=== PATIENT | male | born 1945 | race Caucasian/White ===

== ENCOUNTER → 2018-08-28 15:12 | Outpatient (CLI) | payer OTHER, SELFPAY ==
[2018-08-28 16:05] LABS: BUN Creatinine Ratio 22.5 (6-22); Blood Urea Nitrogen 18 mg/dL (9-20); Calcium 9.6 mg/dL (8.4-10.2); Carbon Dioxide 27 mmol/L (22-32); Chloride 106 mmol/L (98-107); Cholesterol 254 mg/dL (140-199); Estimated Glomerular Filt Rate > 60.0 mL/min (>60); Glucose 67 mg/dL (80-110); HDL Cholesterol 37 mg/dL (40-60); HEMOLYSIS < 15 (0-50); Potassium 4.6 mmol/L (3.4-5.1); Sodium 142 mmol/L (137-145); Triglycerides 517 mg/dL (35-150); Uric Acid 8.1 mg/dL (3.5-8.5)
[2018-08-28 16:21] LABS: Vitamin D 25 Hydroxy (D3) 13.7 ng/mL (30.0-100.0)
== END ==
PROVIDERS: PCP Student in an Organized Health Care Education/Training Program; Visit Provider Student in an Organized Health Care Education/Training Program
DX: M10.9 Gout, unspecified (principal); E78.00 Pure hypercholesterolemia, unspecified; E55.9 Vitamin D deficiency, unspecified; Z12.11 Encounter for screening for malignant neoplasm of colon
CPT/HCPCS: 36415; 80048; 80061; 82306; 84550

== ENCOUNTER → 2018-09-01 11:53 | Outpatient (CLI) | payer OTHER, SELFPAY ==
--- NOTE | 2018-09-01 11:53 | DI.US.S_ITS ---
PROCEDURE: US ABD AORTA ANEURYSM SCREEN INDICATIONS: AAA screen TECHNIQUE: Real time scanning was performed of the aorta and iliac arteries, with image documentation. COMPARISON: None. FINDINGS: Aorta: The upper two thirds of the aorta are obscured by bowel gas. The distal aorta measures 1.9 cm in maximal axial dimension. Iliac arteries: Right common iliac artery measures 1.2 cm. Left common iliac artery measures 1.2 cm. IMPRESSION: Nonvisualization of the upper two thirds of the aorta, due to bowel gas. The distal third of the aorta and iliac arteries show no evidence of aneurysm formation. During scanning incidental note was made of a 2.2 cm maximal dimension left renal cortical hypoechoic structure moderately well-visualized and likely a cyst. Dictated by: Don Ramirez M.D. on 09/01/2018 at 12:59 Approved by: Don Ramirez M.D. on 09/01/2018 at 13:02
== END ==
PROVIDERS: PCP Student in an Organized Health Care Education/Training Program; Visit Provider Student in an Organized Health Care Education/Training Program
DX: Z13.6 Encounter for screening for cardiovascular disorders (principal); Z87.891 Personal history of nicotine dependence
CPT/HCPCS: 76706

== ENCOUNTER → 2018-09-02 11:34 | Outpatient (CLI) | payer OTHER, SELFPAY ==
[2018-09-04 17:51] LABS: Fecal Immunochemical Test DETECTED (NOT DETECTED)
== END ==
PROVIDERS: PCP Student in an Organized Health Care Education/Training Program; Visit Provider Student in an Organized Health Care Education/Training Program
DX: Z12.11 Encounter for screening for malignant neoplasm of colon (principal)
CPT/HCPCS: 82274

== ENCOUNTER → 2018-11-27 10:15 | Outpatient (CLI) | payer OTHER, SELFPAY ==
[2018-11-27 12:05] LABS: BUN Creatinine Ratio 17.8 (6-22); Blood Urea Nitrogen 16 mg/dL (9-20); Calcium 9.3 mg/dL (8.4-10.2); Carbon Dioxide 29 mmol/L (22-32); Chloride 104 mmol/L (98-107); Cholesterol 199 mg/dL (140-199); Estimated Glomerular Filt Rate > 60.0 mL/min (>60); Glucose 115 mg/dL (80-110); HDL Cholesterol 37 mg/dL (40-60); HEMOLYSIS < 15 (0-50); Lipase 130 U/L (23-300); Potassium 4.3 mmol/L (3.4-5.1); Sodium 142 mmol/L (137-145); Triglycerides 433 mg/dL (35-150); Uric Acid 5.3 mg/dL (3.5-8.5)
== END ==
PROVIDERS: PCP Student in an Organized Health Care Education/Training Program; Visit Provider Student in an Organized Health Care Education/Training Program
DX: E55.9 Vitamin D deficiency, unspecified (principal); I10 Essential (primary) hypertension; M10.9 Gout, unspecified; E78.1 Pure hyperglyceridemia; E78.2 Mixed hyperlipidemia; Z79.899 Other long term (current) drug therapy
CPT/HCPCS: 36415; 80048; 80061; 82306; 83690; 84550

== ENCOUNTER → 2019-12-18 08:47 | Outpatient (CLI) | payer OTHER, SELFPAY ==
[2019-12-18 09:56] LABS: Hemoglobin A1C% w Est Avg Glu 6.8 % (4.0-6.0)
[2019-12-18 10:03] LABS: Alanine Aminotransferase 36 IU/L (<50); Albumin 3.8 g/dL (3.5-5.0); Albumin Globulin Ratio 1.4 (1.0-2.8); Alkaline Phosphatase 53 U/L (38-126); Aspartate Aminotransferase 34 IU/L (17-59); BUN Creatinine Ratio 15.1 (6-22); Bilirubin Total 0.5 mg/dL (0.2-1.3); Blood Urea Nitrogen 13 mg/dL (9-20); Calcium 9.4 mg/dL (8.4-10.2); Carbon Dioxide 30 mmol/L (22-32); Chloride 106 mmol/L (98-107); Cholesterol 142 mg/dL (140-199); Estimated Glomerular Filt Rate > 60.0 mL/min (>60); Globulin 2.8 g/dL (1.7-4.1); Glucose 123 mg/dL (80-110); HDL Cholesterol 34 mg/dL (40-60); HEMOLYSIS < 15 (0-50); LDL Cholesterol Calculated 52 mg/dL (<100); Potassium 4.9 mmol/L (3.4-5.1); Sodium 140 mmol/L (137-145); Total Protein 6.6 g/dL (6.3-8.2); Triglycerides 280 mg/dL (35-150)
[2019-12-18 10:05] LABS: C-Reactive Protein Quant < 0.5 mg/dL (<1.0)
[2019-12-18 10:11] LABS: Erythrocyte Sedimentation Rate 9 MM/HR (0-15)
[2019-12-18 10:17] LABS: Vitamin D 25 Hydroxy (D3) 18.7 ng/mL (30.0-100.0)
[2019-12-18 10:31] LABS: TSH w/ Reflex to FT4 1.36 uIU/mL (0.47-4.68)
== END ==
PROVIDERS: PCP Student in an Organized Health Care Education/Training Program; Referring Provider Student in an Organized Health Care Education/Training Program; Visit Provider Student in an Organized Health Care Education/Training Program
DX: E55.9 Vitamin D deficiency, unspecified (principal); I10 Essential (primary) hypertension; M13.0 Polyarthritis, unspecified; R53.82 Chronic fatigue, unspecified; R60.9 Edema, unspecified; E78.1 Pure hyperglyceridemia; E66.01 Morbid (severe) obesity due to excess calories
CPT/HCPCS: 36415; 80053; 80061; 82306; 83036; 84443; 85651; 86140

== ENCOUNTER → 2020-03-28 10:53 | Outpatient (CLI) | payer OTHER, SELFPAY ==
[2020-03-28 13:25] LABS: Hemoglobin A1C% w Est Avg Glu 6.1 % (4.0-6.0)
[2020-03-28 15:22] LABS: Microalbumi Creatinin Ratio Ur 8.5 ug/mg CR (<30); Microalbumin Urine Random 0.7 mg/dL (0-1.6)
== END ==
PROVIDERS: PCP Student in an Organized Health Care Education/Training Program; Referring Provider Student in an Organized Health Care Education/Training Program; Visit Provider Student in an Organized Health Care Education/Training Program
DX: E11.9 Type 2 diabetes mellitus without complications (principal)
CPT/HCPCS: 36415; 82043; 82570; 83036

== ENCOUNTER → 2020-12-13 09:58 | Outpatient (CLI) | payer OTHER, SELFPAY ==
[2020-12-13 10:46] LABS: Hemoglobin A1C% w Est Avg Glu 5.6 % (4.0-6.0)
[2020-12-13 10:52] LABS: BUN Creatinine Ratio 22.2 (6-22); Blood Urea Nitrogen 36 mg/dL (9-20); Calcium 9.7 mg/dL (8.4-10.2); Carbon Dioxide 21 mmol/L (22-32); Chloride 108 mmol/L (98-107); Estimated Glomerular Filt Rate 41.6 mL/min (>60); Glucose 98 mg/dL (80-110); HEMOLYSIS 49 (0-50); Potassium 5.4 mmol/L (3.4-5.1); Sodium 139 mmol/L (137-145)
[2020-12-13 11:08] LABS: Vitamin D 25 Hydroxy (D3) 54.9 ng/mL (30.0-100.0)
== END ==
PROVIDERS: PCP Student in an Organized Health Care Education/Training Program; Referring Provider Student in an Organized Health Care Education/Training Program; Visit Provider Student in an Organized Health Care Education/Training Program
DX: E11.9 Type 2 diabetes mellitus without complications (principal); E55.9 Vitamin D deficiency, unspecified; I10 Essential (primary) hypertension
CPT/HCPCS: 36415; 80048; 82306; 83036

== ENCOUNTER → 2021-01-03 09:00 | Outpatient (CLI) | payer OTHER, SELFPAY ==
[2021-01-03 09:30] LABS: Appearance Urine UA CLEAR; Bilirubin Urine UA 2+ (NEGATIVE); Color Urine UA YELLOW; Glucose Urine UA NEGATIVE (Negative); Ketones Urine UA NEGATIVE (NEGATIVE); Leukocyte Esterase Urine UA NEGATIVE (NEGATIVE); Nitrite Urine UA NEGATIVE (Negative); Occult Blood Urine UA NEGATIVE (Negative); Protein Urine UA NEGATIVE (Negative)
[2021-01-03 09:37] LABS: Ictotest Urine Negative (Negative)
[2021-01-03 09:42] LABS: Hemoglobin A1C% w Est Avg Glu 5.6 % (4.0-6.0)
[2021-01-03 09:47] LABS: Creatinine Urine Random 186.7 mg/dL
[2021-01-03 09:52] LABS: Microalbumin Urine Random 1.5 mg/dL (0-1.6)
[2021-01-03 10:29] LABS: BUN Creatinine Ratio 18.6 (6-22); Blood Urea Nitrogen 22 mg/dL (9-20); Calcium 9.1 mg/dL (8.4-10.2); Carbon Dioxide 21 mmol/L (22-32); Chloride 108 mmol/L (98-107); Estimated Glomerular Filt Rate 59.9 mL/min (>60); Glucose 106 mg/dL (80-110); HEMOLYSIS < 15 (0-50); Potassium 4.4 mmol/L (3.4-5.1); Sodium 139 mmol/L (137-145)
== END ==
PROVIDERS: PCP Student in an Organized Health Care Education/Training Program; Referring Provider Student in an Organized Health Care Education/Training Program; Visit Provider Student in an Organized Health Care Education/Training Program
DX: E11.9 Type 2 diabetes mellitus without complications (principal); N17.9 Acute kidney failure, unspecified
CPT/HCPCS: 36415; 80048; 81003; 82043; 82570; 83036

== ENCOUNTER → 2021-06-13 10:13 | Outpatient (CLI) | payer OTHER, SELFPAY ==
[2021-06-13 11:30] LABS: BUN Creatinine Ratio 17.2 (6-22); Blood Urea Nitrogen 20 mg/dL (9-20); Estimated Glomerular Filt Rate > 60.0 mL/min (>60)
[2021-06-13 11:31] LABS: Creatinine Urine Random 97.2 mg/dL
[2021-06-13 11:35] LABS: Microalbumi Creatinin Ratio Ur 31.8 ug/mg CR (<30); Microalbumin Urine Random 3.1 mg/dL (0-1.6)
[2021-06-13 11:38] LABS: Hemoglobin A1C% w Est Avg Glu 5.7 % (4.0-6.0)
== END ==
PROVIDERS: PCP Student in an Organized Health Care Education/Training Program; Referring Provider Student in an Organized Health Care Education/Training Program; Visit Provider Student in an Organized Health Care Education/Training Program
DX: E11.9 Type 2 diabetes mellitus without complications (principal); I10 Essential (primary) hypertension
CPT/HCPCS: 36415; 82043; 82565; 82570; 83036; 84520

== ENCOUNTER → 2024-07-02 07:13 | Outpatient (CLI) | payer OTHER, SELFPAY ==
[2024-07-02 07:43] LABS: Hematocrit 39.6 % (41-53); Hemoglobin 13.4 g/dL (13.5-17.5); Mean Corpuscular Volume 94.4 fL (80-100); Platelet Count 290 X10^3/uL (150-400); Red Blood Cell Count 4.19 X10^6/uL (4.5-5.9); Red Cell Distribution Width 14.8 % (11.6-14.8); White Blood Cell Count 5.7 X10^3/uL (4.5-11.0)
[2024-07-02 07:55] LABS: Hemoglobin A1C% w Est Avg Glu 5.9 % (4.0-6.0)
[2024-07-02 08:00] LABS: Alanine Aminotransferase 31 IU/L (<50); Albumin Globulin Ratio 1.3 (1.0-2.8); Alkaline Phosphatase 56 U/L (38-126); Aspartate Aminotransferase 35 IU/L (17-59); BUN Creatinine Ratio 10.5 (6-22); Bilirubin Total 0.5 mg/dL (0.2-1.3); Blood Urea Nitrogen 14 mg/dL (9-20); Calcium 9.1 mg/dL (8.4-10.2); Carbon Dioxide 26 mmol/L (22-32); Chloride 104 mmol/L (98-107); Cholesterol 257 mg/dL (140-199); Estimated Glomerular Filt Rate 54 mL/min (>60); Globulin 3.1 g/dL (1.7-4.1); Glucose 116 mg/dL (80-110); HDL Cholesterol 32 mg/dL (40-60); HEMOLYSIS < 15 (0-50); Potassium 4.6 mmol/L (3.4-5.1); Sodium 136 mmol/L (137-145); Total Protein 7.1 g/dL (6.3-8.2); Triglycerides 509 mg/dL (35-150); Uric Acid 7.9 mg/dL (3.5-8.5)
[2024-07-02 08:19] LABS: Vitamin D 25 Hydroxy (D3) 30.1 ng/mL (30.0-100.0)
[2024-07-02 08:25] LABS: Creatinine Urine Random 66.86 mg/dL
[2024-07-02 08:30] LABS: Microalbumin Urine Random 3.9 mg/dL (0-1.6)
[2024-07-02 08:49] LABS: Vitamin B12 Reflex MMA if <400 725 pg/mL (239-931)
[2024-07-02 09:52] LABS: Erythrocyte Sedimentation Rate 21 MM/HR (0-15)
== END ==
PROVIDERS: PCP Family Medicine; Referring Provider Family Medicine; Visit Provider Family Medicine
DX: G62.9 Polyneuropathy, unspecified (principal); E11.9 Type 2 diabetes mellitus without complications; I10 Essential (primary) hypertension; E55.9 Vitamin D deficiency, unspecified; M10.9 Gout, unspecified; Z13.9 Encounter for screening, unspecified; E78.00 Pure hypercholesterolemia, unspecified; R80.9 Proteinuria, unspecified
CPT/HCPCS: 36415; 80053; 80061; 82043; 82306; 82570; 82607; 83036; 84550; 85027; 85651; 86038

== ENCOUNTER → 2024-07-06 10:32 | Outpatient (CLI) | payer OTHER, SELFPAY ==
--- NOTE | 2024-07-06 10:34 | DI.RAD.S_ITS ---
PROCEDURE: XR KNEE RT 3V INDICATIONS: Chronic bilateral knee pain TECHNIQUE: 3 views of the knee were acquired. COMPARISON: None. FINDINGS: Bones: No fractures or dislocations. No suspicious bony lesions. Severe medial and mild to moderate lateral tibiofemoral compartment narrowing with associated osteophytosis as well as moderate to severe patellofemoral compartment narrowing with osteophytosis. There is resulting varus deformity. Soft tissues: No joint effusion. No suspicious soft tissue calcifications. Atherosclerotic vascular calcifications are identified. 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 Dictated by: Romulo Leonard M.D. on 07/06/2024 at 15:18 Approved by: Romulo Leonard M.D. on 07/06/2024 at 15:21
--- NOTE | 2024-07-06 10:34 | DI.RAD.S_ITS ---
PROCEDURE: XR KNEE LT 3V INDICATIONS: Chronic bilateral knee pain TECHNIQUE: 3 views of the knee were acquired. COMPARISON: None. FINDINGS: Bones: No fractures or dislocations. No suspicious bony lesions. Moderate medial and mild lateral tibiofemoral compartment narrowing and associated osteophytosis. Mild to moderate patellofemoral compartment narrowing with osteophytosis. Mild varus angulation. Atherosclerotic vascular calcifications are noted. Soft tissues: No joint effusion. No suspicious soft tissue calcifications. 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 Dictated by: Romulo Leonard M.D. on 07/06/2024 at 15:25 Approved by: Romulo Leonard M.D. on 07/06/2024 at 15:27
== END ==
PROVIDERS: PCP Family Medicine; Referring Provider Family Medicine; Visit Provider Family Medicine
DX: M25.561 Pain in right knee (principal); M25.562 Pain in left knee; G89.29 Other chronic pain; M17.0 Bilateral primary osteoarthritis of knee
CPT/HCPCS: 73562